=== PATIENT | female | born 1980 | race Caucasian/White ===

== ENCOUNTER 2018-04-03 12:58 | Emergency (ER) | payer BC ==
[~2018-04-03] VITALS: Ht 167.6 cm; Wt 59.0 kg
[2018-04-03 13:07] VITALS: BP 120/59
== END 2018-04-03 13:28 | disposition home or self-care (01) ==
LOC: ER 13:02
DX: Z13.89 Encounter for screening for other disorder (principal); F17.200 Nicotine dependence, unspecified, uncomplicated
CPT/HCPCS: 99281; A4606; Z7610; Z7502

== ENCOUNTER 2018-10-14 04:32 | Emergency (ER) | payer BC ==
[~2018-10-14] VITALS: Ht 165.1 cm; Wt 57.6 kg
--- NOTE | 2018-10-14 06:10 | NUR ---
PT AMBULATED INTO ER #6 WITH A STEADY GAIT AND A C/O LT HAND PINKIE FINGER LACERATION.
[2018-10-14] MEDS ORDERED: LIDOCAINE 1% INJ 50 ML MDV IJ ONE (06:30)
--- NOTE | 2018-10-14 07:09 | NUR ---
PT HAD HER LT PINKIE FINGER SUTURED. WRAPPED IN KERLEX AND BASEBALL SPLINT APPLIED.
[2018-10-14 07:11] VITALS: BP 115/89
--- NOTE | 2018-10-14 07:11 | NUR ---
Patient discharged to home in stable condition. Written and verbal after care instructions given. Patient verbalizes understanding of instruction AND RX. PT AMBULATED OUT WITH A STEADY GAIT. PT'S FRIEND IS DRIVING PT HOME.
== END 2018-10-14 07:12 | disposition home or self-care (01) ==
LOC: ER 04:34
DX: S61.217A Laceration without foreign body of left little finger without damage to nail, initial encounter (principal); F10.10 Alcohol abuse, uncomplicated; Y90.9 Presence of alcohol in blood, level not specified; Z60.2 Problems related to living alone; W25.XXXA Contact with sharp glass, initial encounter; Y93.89 Activity, other specified; Y92.89 Other specified places as the place of occurrence of the external cause; Y99.8 Other external cause status
CPT/HCPCS: 73140-TC; A6402